=== PATIENT | male | born 1935 | race Caucasian/White ===

== ENCOUNTER 2018-01-21 05:27 | Day surgery (SDC) | payer OTHER ==
[~2018-01-21] VITALS: Ht 175.3 cm; Wt 99.8 kg
--- NOTE | ~2018-01-21 | O ---
[facility] [place] [address] OPERATIVE REPORT Name: MERLYN GAVIN Room #: 150-3 [facility]#: [id number] Admission: 01/21/18 Attend Phys: Josef Hussein MD Discharge: Date of : 39 Report #: [id number] THIS REPORT FOR: //name// CC: Bill Hussein DATE OF SERVICE: 01/21/2018 DIRECTOR OF RETAIL: None. PREOPERATIVE DIAGNOSIS: Bilateral upper lid ptosis with superior visual field defects both eyes. POSTOPERATIVE DIAGNOSIS: Bilateral upper lid ptosis with superior visual field defects both eyes. OPERATION PERFORMED: Bilateral upper lid functional ptosis repair. DIRECTOR OF RETAIL: None. ANESTHESIA: Local with IV sedation. COMPLICATIONS: None. INDICATIONS FOR PROCEDURE: This patient has bilateral upper lid ptosis with superior visual field loss both eyes. Visual field testing demonstrates dense superior visual defects. Retesting with the upper lid elevated shows an improvement in visual field loss of over 30% and in excess of 12 degrees. The current procedure is being undertaken in order to improve the patient's visual function. Informed consent was obtained to include but not limited to the risk of loss of vision, bleeding, infection, scarring, failure to improve the problem and need for further surgery, such as adjustment of lid height. DESCRIPTION OF PROCEDURE: The patient was taken to the operating room, where 2% Xylocaine with epinephrine mixed with equal parts of 0.75% Marcaine with Wydase was administered transcutaneously to each upper lid. The patient was then prepped and draped in the usual sterile fashion. An upper lid crease incision was then made bilaterally and the dissection was carried down until the orbital septum was identified. The orbital septum was then cleared and the preaponeurotic fat identified. The levator aponeurosis was then disinserted from the anterior surface of the tarsal plate and dissected [address] [address] OPERATIVE REPORT Name: ROMAINEMERLYN Bill Room #: 150-3 [facility]#: [id number] Admission: 01/21/18 Attend Phys: Josef Hussein MD Discharge: Date of : 39 Report #: [id number] in the avascular Hilario's muscle plane. The aponeurosis was then advanced and reattached to the anterior surface of the tarsal plate with interrupted mattress 6-0 Novafil sutures on each side, adjusting for height and contour. The redundant aponeurosis was then amputated. The incision was then closed with multiple interrupted 6-0 chromic sutures that were used to recreate an upper lid crease. The skin was closed with a running 6-0 plain gut suture. The wound was then cleaned and dressed with ophthalmic antibiotic ointment followed by a Telfa pad. The patient was transported to the recovery area, having tolerated the procedure well with no anesthesia or operative complications being noted. By: [id number] Josef Hussein MD /ganesh
[~2018-01-21 05:27] MED LIST: ASPIR 8181 MG PO; CARDIZEM CD240 MG PO; CLONIDINE0.1 PO; COREG12.5 MG PO; FLOMAX0.4 MG PO; GLIMEPIRIDE1 MG PO; LASIX 20 MG TAB20 MG PO; LIPITOR80 MG PO; MYSOLINE50 MG PO; PRINIVIL40 MG PO; SINGULAIR 10 MG10 MG PO; VITAMIN D1000 UNI2 PO; XARELTO20 MG PO
[2018-01-21 07:00] VITALS: BP 176/93
== END 2018-01-21 08:30 | disposition home or self-care (01) ==
LOC: TBA 05:27 → OR 05:27
DX: H02.403 Unspecified ptosis of bilateral eyelids (principal); H53.462 Homonymous bilateral field defects, left side; H53.461 Homonymous bilateral field defects, right side; I10 Essential (primary) hypertension; I25.2 Old myocardial infarction; E11.9 Type 2 diabetes mellitus without complications; I48.91 Unspecified atrial fibrillation; E78.00 Pure hypercholesterolemia, unspecified; M19.90 Unspecified osteoarthritis, unspecified site; Z98.41 Cataract extraction status, right eye; Z79.01 Long term (current) use of anticoagulants; Z95.5 Presence of coronary angioplasty implant and graft; Z98.42 Cataract extraction status, left eye; Z96.652 Presence of left artificial knee joint
CPT/HCPCS: 50010; 50101; 50386; 50398; 51636; 56528; 56531; 70005